=== PATIENT | male | born 2000 | race Two or more races ===

== ENCOUNTER 2022-03-31 06:20 | Emergency (ER) | payer MEDICAID ==
[~2022-03-31] VITALS: Ht 177.8 cm; Wt 81.6 kg
[2022-03-31 06:32] VITALS: BP 136/80
[2022-03-31] MEDS ORDERED: KETOROLAC TROMETH 60MG/2ML VIAL IM ONE (07:00)
[2022-03-31] MEDS ORDERED: METH750T22 PO (07:22)
[2022-03-31] MEDS ORDERED: ACET-1080 PO (07:22)
== END 2022-03-31 07:33 | disposition home or self-care (01) ==
LOC: ER 06:20
DX: S39.012A Strain of muscle, fascia and tendon of lower back, initial encounter (principal); F17.210 Nicotine dependence, cigarettes, uncomplicated; Z88.8 Allergy status to other drugs, medicaments and biological substances; X50.1XXA Overexertion from prolonged static or awkward postures, initial encounter; Y93.89 Activity, other specified; Y92.89 Other specified places as the place of occurrence of the external cause; Y99.8 Other external cause status
CPT/HCPCS: 96372; 99283; J1885